=== PATIENT | male | born 1980 | race Hispanic/Latino ===

== ENCOUNTER 2017-09-05 17:04 | Emergency (ER) | payer SELFPAY | END 2017-09-05 19:34 | disposition left against medical advice (07) | LOC: ERS 17:04 | DX: Z53.21 Procedure and treatment not carried out due to patient leaving prior to being seen by health care provider (principal) | CPT/HCPCS: J7620 ==

== ENCOUNTER 2017-12-05 17:07 | Emergency (ER) | payer SELFPAY | END 2017-12-05 19:05 | disposition left against medical advice (07) | LOC: ERS 17:07 | DX: Z53.21 Procedure and treatment not carried out due to patient leaving prior to being seen by health care provider (principal) ==

== ENCOUNTER 2019-08-03 01:01 | Inpatient (IN) | payer SELFPAY ==
[2019-08-03] MEDS ORDERED: Ondansetron PF 4 MG/2 ML Vial ONE (01:13)
[2019-08-03] MEDS ORDERED: Adacel (T-DAP) 0.5 ML SYRINGE ONE (02:33)
[2019-08-03 03:03] LABS: #Basophils 0.1 thou/uL (0.0-0.2); #Eosinphils 0.2 thou/uL (0.0-0.7); #Lymphocytes 1.5 thou/uL (1.20-3.40); #Monocytes 0.4 thou/uL (0.11-0.59); #Neutrophils 9.4 thou/uL (1.40-6.50); %Basophils 0.7 % (0.0-1.0); %Lymphocytes 12.7 % (21.0-51.0); %Monocytes 3.3 % (0.0-10.0); %Neutrophils 81.4 % (42.0-75.0); Hemoglobin 15.4 g/dL (14.0-18.0); Mean Corpuscular HGB CONC 34.9 g/dL (32.0-36.0); Mean Corpuscular Hemoglobin 30.7 pg (27.0-31.0); Mean Platelet Volume 8.2 fL (7.4-10.4); Platelet Count 201 thou/uL (130-400); White Blood Cell (WBC) Count 11.5 thou/uL (4.8-10.8)
[2019-08-03 03:16] LABS: PTT 26.2 SEC (22.9-36.1); Prothrombin Time 12.8 SEC (12.0-14.7)
[2019-08-03] MEDS ORDERED: Morphine 4 MG/ML VIAL SLOW IVP PRN ×2 (03:25→03:33)
[2019-08-03] MEDS ORDERED: Dextrose 5% in Water 1,000 ML IV PRN (03:25)
[2019-08-03] MEDS ORDERED: Promethazine HCl 25 MG/ML VIAL IVPB PRN (03:25)
[2019-08-03] MEDS ORDERED: Dextrose 50% Abboject 50 ML SYRINGE SLOW IVP PRN (03:25)
[2019-08-03] MEDS ORDERED: Ondansetron PF 4 MG/2 ML Vial IVP PRN (03:25)
[2019-08-03] MEDS ORDERED: hydrALAZINE 20 MG/ML VIAL SLOW IVP PRN (03:25)
[2019-08-03 03:26] LABS: ALT (SGPT) 32 U/L (8-55); AST (SGOT) 23 U/L (5-34); Acetaminophen Less than 6.0 mcg/mL (10.0-30.0); Albumin 4.5 g/dL (3.5-5.0); Alcohol 171 mg/dL (Less than 10); Alkaline Phosphatase 83 U/L (40-110); Anion Gap 17 mmol/L (10-20); BUN (Urea Nitrogen) 11 mg/dL (8.9-20.6); Bilirubin, Total 0.8 mg/dL (0.2-1.2); Calc. Creatinine Clearance 0 mL/min (70-130); Calcium 8.7 mg/dL (7.8-10.44); Carbon Dioxide 21 mmol/L (22-29); Chloride 106 mmol/L (98-107); Estimated GFR-MDRD 82; Globulin 2.7 g/dL (2.4-3.5); Glucose 184 mg/dL (70-105); Potassium 4.7 mmol/L (3.5-5.1); Protein, Total 7.2 g/dL (6.0-8.3); Salicylate Less than 8.0 mg/dL (15.0-30.0); Sodium 139 mmol/L (136-145)
[2019-08-03] MEDS ORDERED: traMADol HCl 50 MG TAB PO PRN (03:29)
[2019-08-03 03:31] LABS: Phosphorus 2.3 mg/dL (2.3-4.7)
[2019-08-03] MEDS ORDERED: Sodium Chloride 0.9% 1,000 ML IV SCH (03:45)
[2019-08-03] MEDS ORDERED: Promethazine HCl 12.5 MG in Sodium Chloride 0.9% 50 ML IVPB PRN (03:52)
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
[2019-08-03] MEDS ORDERED: Sodium Phosphate 15 MMOL in Sodium Chloride 0.9% 250 ML 250 ML IVPB SCH (04:30)
[2019-08-03 05:25] VITALS: BMI 28.6
[2019-08-03] MEDS ORDERED: traMADol HCl 50 MG TAB PO SCH (06:00)
[2019-08-03] MEDS ORDERED: Acetaminophen 1,000 MG in Premix Bag 1 BAG IVPB SCH (06:00)
[2019-08-03 07:14] VITALS: TEMP 98.6
[2019-08-03 07:21] LABS: Amphetamine Not Detected (NotDetected); Barbiturates Screen Not Detected (NotDetected); Benzodiazepine Screen Not Detected (NotDetected); Cocaine Metabolite Screen Not Detected (NotDetected); Medtox Control Line Valid? VALID (VALID); Medtox Reader # READER 1; Methadone Not Detected (NotDetected); Methamphetamine Not Detected (NotDetected); Opiate Screen Not Detected (NotDetected); Oxycodone Screen Not Detected (NotDetected); Phencyclidine (PCP) Not Detected (NotDetected); THC/Cannabinoid Screen Not Detected (NotDetected); Tricyclic Screen Not Detected (NotDetected)
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
[2019-08-03] MEDS ORDERED: Folic Acid 1 MG TAB PO SCH (09:00)
[2019-08-03] MEDS ORDERED: Multivitamin W/ Minerals 1 TAB PO SCH (09:00)
[2019-08-03] MEDS ORDERED: Famotidine/PF 20 mg/2ml Vial SLOW IVP SCH (09:00)
[2019-08-03] MEDS ORDERED: Thiamine 100 MG TAB PO SCH (09:00)
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
[2019-08-03] MEDS ORDERED: Acetaminophen 500 MG TAB PO SCH (11:15)
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
[2019-08-03] MEDS ORDERED: Oxazepam 10 MG CAP PO SCH (14:00)
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
[2019-08-03] MEDS ORDERED: Mometasone/Formoterol 120 PUFF INHALER INH SCH (18:30)
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
== END 2019-08-03 12:15 | disposition left against medical advice (07) | DRG 87 ==
LOC: ERS 01:01 → IMCU/EMU 05:17
PROVIDERS: ADMIT Surgery; ATTEND Surgery
DX: S06.6X1A Traumatic subarachnoid hemorrhage with loss of consciousness of 30 minutes or less, initial encounter (principal); Z79.899 Other long term (current) drug therapy; R40.2132 Coma scale, eyes open, to sound, at arrival to emergency department; R40.2242 Coma scale, best verbal response, confused conversation, at arrival to emergency department; R40.2362 Coma scale, best motor response, obeys commands, at arrival to emergency department; F10.129 Alcohol abuse with intoxication, unspecified; J45.909 Unspecified asthma, uncomplicated; S01.01XA Laceration without foreign body of scalp, initial encounter; Y04.0XXA Assault by unarmed brawl or fight, initial encounter; E83.39 Other disorders of phosphorus metabolism
CPT/HCPCS: 36415; 70450; 71045; 72125; 80053; 80306; 80307; 83735; 84100; 85025; 85610; 85730; 90471; 90715; 94640; 96361; 96374; G0390; J2405; J7050; J7620; S0028